=== PATIENT | male | born 1970 | race Hispanic/Latino ===

== ENCOUNTER 2024-12-30 02:52 | Inpatient (IN) | payer OTHER ==
[2024-12-30 05:47] VITALS: BMI 30.2
[2024-12-30] MEDS ORDERED: Ondansetron PF 4 MG/2 ML Vial IVP PRN (05:50)
[2024-12-30] MEDS ORDERED: Calcium Carbonate 500 MG ChewTAB PO PRN (05:50)
[2024-12-30] MEDS ORDERED: Melatonin 3 MG TAB PO PRN (05:50)
[2024-12-30] MEDS ORDERED: Guaifenesin DM 100-10/5 ML UDCUP PO PRN (05:50)
[2024-12-30] MEDS ORDERED: Dextrose 50% Abboject 50 ML SYRINGE SLOW IVP PRN (05:50)
[2024-12-30] MEDS ORDERED: Glucagon 1 MG/ML KIT IM PRN (05:50)
[2024-12-30] MEDS ORDERED: Senokot S 8.6-50 MG TAB PO PRN (05:50)
[2024-12-30 06:22] LABS: #Basophils 0.03 10x3/uL (0.0-0.2); #Eosinophils 0.22 10x3/uL (0.0-0.5); #Monocytes 0.91 10x3/uL (0.0-1.1); #Neutrophils 5.24 10x3/uL (1.5-8.4); %Basophils 0.4 % (0.0-2.0); %Eosinophils 3.0 % (0.0-6.0); %Lymphocytes 12.4 % (18.0-47.0); %Monocytes 12.4 % (0.0-10.0); %Neutrophils 71.4 % (40.0-75.0); Hematocrit 31.5 % (38.8-50.0); Hemoglobin 9.4 g/dL (13.5-17.5); Mean Corpuscular Hemoglobin 24.5 pg (27.0-33.0); Mean Corpuscular Volume 82.0 fL (81.2-95.1); Platelet Count 261 10x3/uL (150-450); Red Blood Cell (RBC) Count 3.84 10x6/uL (4.32-5.72); White Blood Cell (WBC) Count 7.34 10x3/uL (3.5-10.5)
[2024-12-30 06:44] LABS: Anion Gap 14 mmol/L (10-20); BUN (Urea Nitrogen) 32 mg/dL (8.4-25.7); Calc. Creatinine Clearance 113 mL/min (70-130); Calcium 8.6 mg/dL (7.8-10.44); Carbon Dioxide 19 mmol/L (22-29); Chloride 107 mmol/L (98-107); Glucose 142 mg/dL (70-105); Potassium 4.1 mmol/L (3.5-5.1); Sodium 136 mmol/L (136-145)
[2024-12-30] MEDS: Gabapentin 100 MG CAP PO SCH (09:07)
[2024-12-30] MEDS: Aspirin Chewable 81 MG TAB PO SCH (09:07)
[2024-12-30] MEDS: Pantoprazole 40 MG DR.TAB PO SCH (09:07)
[2024-12-30] MEDS: Metoprolol Succinate XL 25 MG ER.TAB PO SCH (09:09)
[2024-12-30] MEDS: Valproic Acid 250 mg/5 ml UD Cup PO SCH (09:10)
[2024-12-30] MEDS: Sacubitril 24MG/Valsartan 26 MG TAB PO SCH ×2 (10:13→21:18)
[2024-12-30] MEDS: VANCOMYCIN 1.25 GM/250 ML BAG 1.25 GM in Premix 1 BAG IVPB SCH (10:15)
[2024-12-30 14:49] VITALS: BMI 30.2
[2024-12-30] MEDS: Vancomycin 1 GM in Sodium Chloride 0.9% 250 ML 250 ML IVPB SCH (21:16)
[2024-12-30] MEDS: Furosemide 40 MG TAB PO SCH (21:19)
[2024-12-31 05:07] LABS: #Basophils 0.05 10x3/uL (0.0-0.2); #Eosinophils 0.27 10x3/uL (0.0-0.5); #Monocytes 0.74 10x3/uL (0.0-1.1); #Neutrophils 5.24 10x3/uL (1.5-8.4); %Basophils 0.7 % (0.0-2.0); %Eosinophils 3.8 % (0.0-6.0); %Lymphocytes 11.9 % (18.0-47.0); %Monocytes 10.3 % (0.0-10.0); %Neutrophils 73.2 % (40.0-75.0); Hematocrit 30.5 % (38.8-50.0); Hemoglobin 9.5 g/dL (13.5-17.5); Mean Corpuscular Hemoglobin 24.9 pg (27.0-33.0); Mean Corpuscular Volume 79.8 fL (81.2-95.1); Platelet Count 303 10x3/uL (150-450); Red Blood Cell (RBC) Count 3.82 10x6/uL (4.32-5.72); White Blood Cell (WBC) Count 7.16 10x3/uL (3.5-10.5)
[2024-12-31 05:19] LABS: Vancomycin, Random 20.6 ug/mL (See Comment)
[2024-12-31 05:21] LABS: Anion Gap 14 mmol/L (10-20); BUN (Urea Nitrogen) 21 mg/dL (8.4-25.7); Calc. Creatinine Clearance 128 mL/min (70-130); Calcium 9.3 mg/dL (7.8-10.44); Carbon Dioxide 24 mmol/L (22-29); Chloride 105 mmol/L (98-107); Glucose 168 mg/dL (70-105); Potassium 4.5 mmol/L (3.5-5.1); Sodium 138 mmol/L (136-145)
[2024-12-31] MEDS: Acetaminophen 325 MG TAB PO PRN (10:35)
[2024-12-31 12:46] VITALS: BP 148/83; TEMP 98.1
== END 2024-12-31 14:10 | disposition home or self-care (01) | DRG 603 ==
LOC: CSHTELE 05:26
PROVIDERS: ADMIT Student in an Organized Health Care Education/Training Program; ATTEND Internal Medicine
DX: L03.116 Cellulitis of left lower limb (principal); E87.21 Acute metabolic acidosis; I50.22 Chronic systolic (congestive) heart failure; N17.9 Acute kidney failure, unspecified; R65.10 Systemic inflammatory response syndrome (SIRS) of non-infectious origin without acute organ dysfunction; E87.29 Other acidosis; E03.9 Hypothyroidism, unspecified; E11.9 Type 2 diabetes mellitus without complications; I48.0 Paroxysmal atrial fibrillation; G40.909 Epilepsy, unspecified, not intractable, without status epilepticus; I25.10 Atherosclerotic heart disease of native coronary artery without angina pectoris; F10.11 Alcohol abuse, in remission; E86.0 Dehydration; N18.2 Chronic kidney disease, stage 2 (mild); I95.9 Hypotension, unspecified; E78.5 Hyperlipidemia, unspecified; I73.9 Peripheral vascular disease, unspecified; Z86.73 Personal history of transient ischemic attack (TIA), and cerebral infarction without residual deficits; I11.0 Hypertensive heart disease with heart failure; Z79.84 Long term (current) use of oral hypoglycemic drugs; Z90.49 Acquired absence of other specified parts of digestive tract; Z98.890 Other specified postprocedural states; D64.9 Anemia, unspecified; Z79.899 Other long term (current) drug therapy; Z79.82 Long term (current) use of aspirin
CPT/HCPCS: 36415; 36416; 80048; 80202; 84145; 85025; 86140; 97139; J0692; J1815; J3373; J7050; J7120

== ENCOUNTER 2025-01-04 08:46 | Outpatient (CLI) | payer OTHER | END 2025-01-04 08:47 | disposition home or self-care (01) | LOC: CSHWCC 08:46 | PROVIDERS: ATTEND Nurse Practitioner Family | DX: T24.232D Burn of second degree of left lower leg, subsequent encounter (principal); E11.622 Type 2 diabetes mellitus with other skin ulcer; L98.499 Non-pressure chronic ulcer of skin of other sites with unspecified severity | CPT/HCPCS: 16020; 99213; G0463 ==

== ENCOUNTER 2025-01-18 14:18 | Outpatient (CLI) | payer OTHER | END 2025-01-18 14:19 | disposition home or self-care (01) | LOC: CSHWCC 14:18 | PROVIDERS: ATTEND Nurse Practitioner Family | DX: T24.232D Burn of second degree of left lower leg, subsequent encounter (principal); E11.622 Type 2 diabetes mellitus with other skin ulcer; L98.499 Non-pressure chronic ulcer of skin of other sites with unspecified severity | CPT/HCPCS: 16020; 36416; 99213; G0463 ==